=== PATIENT | male | born 1965 | race Two or more races ===

== ENCOUNTER 2023-05-28 14:13 | Emergency (ER) | payer SELFPAY ==
[2023-05-28 14:18] VITALS: BP 166/99; PULSE 71; RESP 18; TEMP 36.7; O2SAT 97; BMI 27.5
--- NOTE | 2023-05-28 14:37 | ED_ITS ---
HPI - General Adult General Chief complaint: Headache/Migraine Stated complaint: L ear pain, headache Time Seen by Provider: 05/28/23 14:14 History of Present Illness HPI narrative: Patient is a 58-year-old male who through an certified ophthalmic medical technician reports that he has had some sinus congestion primarily left maxillary sinus area and some occasional ear discomfort. He has had this on and off for 8 months. He was on antibiotics in [place] for about a week and he reports that that helped him. He denies any other health history of medical problems. He has no known drug allergies to medicines he is on no home medications. Patient denies chest pain or breathing problem. Related Data Previous Rx's Medication Instructions Recorded amoxicillin 500 mg capsule 500 mg PO TID #42 caps 05/28/23 prednisone 20 mg tablet 20 mg PO BID #10 tabs 05/28/23 Allergies Allergy/AdvReac Type Severity Reaction Status Date / Time No Known Drug Allergies Allergy Verified 05/28/23 14:18 Review of Systems Status of ROS: Reports: 6 or more systems reviewed and unremarkable except as noted in History and below PFSH PFSH Social History Smoking Status: Never smoker Do you use any of these nicotine containing products: None Second hand tobacco smoke exposure: No How often do you have a drink containing alcohol: never AUDIT-C Alcohol total score: 0 Non-prescribed substance use: denies use service: No Exam Narrative: Exam Narrative: Objective: Patient is no distress, is blood pressure is just slightly elevated 166/99, he is afebrile HEENT shows ears clear bilaterally there is some cerumen in the canals He has got left maxillary sinus tenderness right is on tender throat is clear neck is supple Const: Vital Signs, click to edit/add: Vital Signs - 24 hr 05/28/23 14:18 Temperature 98.1 F Pulse Rate [Pulse Oximeter] 71 Respiratory Rate 18 Blood Pressure [Le ft Upper Arm] 166/99 H Pulse Oximetry 97 Oxygen Delivery Me thod Room Air Course Vital Signs Vital signs: Initial Vital Signs Temperature 98.1 F 05/28/23 14:18 Temperature Source Temporal Artery Scan 05/28/23 14:18 Pulse Rate 71 05/28/23 14:18 Pulse Rhythm Regular 05/28/23 14:18 Respiratory Rate 18 05/28/23 14:18 Blood Pressure 166/99 H 05/28/23 14:18 Blood Pressure Mean 121 H 05/28/23 14:18 Blood Pressure Position Supine 05/28/23 14:18 Pulse Oximetry 97 05/28/23 14:18 Oxygen Delivery Method Room Air 05/28/23 14:18 Vital Signs Temperature 98.1 F 05/28/23 14:18 Pulse Rate 71 05/28/23 14:18 Respiratory Rate 18 05/28/23 14:18 Blood Pressure 166/99 H 05/28/23 14:18 Pulse Oximetry 97 05/28/23 14:18 Oxygen Delivery Method Room Air 05/28/23 14:18 Temperature 98.1 F 05/28/23 14:18 Pulse Rate 71 05/28/23 14:18 Respiratory Rate 18 05/28/23 14:18 Blood Pressure 166/99 H 05/28/23 14:18 Pulse Oximetry 97 05/28/23 14:18 Oxygen Delivery Method Room Air 05/28/23 14:18 Medical Decision Making MDM Narrative Medical decision making narrative: 58-year-old male with left maxillary sinusitis, question whether there is an allergic component to it as well. I think I would cover him with amoxicillin 500 t.i.d. x2 weeks, would also give him prednisone 20 mg b.i.d. x5 days. Fluids and steam recommended, he can follow up with primary care within the next 2 weeks for reassessment. Return to ED sooner problems or concerns. Discharge Plan Discharge Clinical Impression: Sinusitis Patient Disposition: Home, Self-Care Condition: Stable Additional Instructions: Antibiotics and steroids as prescribed, recommend follow-up with the primary care physician within 2 weeks for recheck. Activity Level: No Restrictions Discharge Diet: Regular Prescriptions: New amoxicillin 500 mg capsule 500 mg PO TID Qty: 42 0RF prednisone 20 mg tablet 20 mg PO BID Qty: 10 0RF Stand Alone Forms: [employer] Info Instructions
== END 2023-05-28 14:52 | disposition home or self-care (01) ==
PROVIDERS: Emergency Provider Family Medicine
DX: J32.9 Chronic sinusitis, unspecified (principal)
CPT/HCPCS: 99283; T1013

== ENCOUNTER 2024-03-19 22:33 | Emergency (ER) | payer OTHER, SELFPAY ==
[2024-03-19 23:26] VITALS: BP 172/89; PULSE 60; RESP 18; TEMP 36.6; O2SAT 99; BMI 26.6
--- NOTE | 2024-03-19 23:52 | ED_ITS ---
HPI - Headache General Time Seen by Provider: 23:52 Date Seen: 03/19/24 Chief Complaint: Headache/Migraine Stated Complaint: Headache Time Seen by Provider: 03/19/24 23:52 Source: patient, RN notes reviewed and old records reviewed Mode of arrival: ambulatory Limitations: no limitations History of Present Illness HPI Narrative: 59-year-old male who comes in today complaining of headache, nasal in your congestion. Patient said he has had a daily headache for 8 years. This is in a band around his temples, also some in the back of the neck. He took Tylenol for this earlier today. He says DKA. Today because the headache got worse this afternoon. No nausea, vomiting, weakness, dizziness, vision changes. He also complains of 3 years of nasal congestion and ears feeling plugged. This does not seem to be seasonal. He has not seen a doctor previously for his headaches, he was seen for is sinus congestion in the emergency department last year but otherwise has not had any follow-up with primary care or specialty care. Related Data Previous Rx's Medication Instructions Recorded amoxicillin 500 mg capsule 500 mg PO TID #42 caps 05/28/23 prednisone 20 mg tablet 20 mg PO BID #10 tabs 05/28/23 Allergies Allergy/AdvReac Type Severity Reaction Status Date / Time No Known Drug Allergies Allergy Verified 05/28/23 14:18 PFSH COUNTS INCLUDE 234 BEDS AT THE [facility] Social History Smoking Status: Never smoker Do you use any of these nicotine containing products: None Second hand tobacco smoke exposure: No How often do you have a drink containing alcohol: never AUDIT-C Alcohol total score: 0 Non-prescribed substance use: denies use service: No Exam Narrative: Exam Narrative: General: Well-developed and well-nourished, no acute distress Head: Atraumatic and normocephalic, diffuse tenderness from the temples posteriorly around the parietal area in a bandlike configuration. Also some occipital tenderness bilaterally. Eyes: Pupils are equal reactive, extraocular motions intact, conjunctiva clear ENT: External nose and ears are normal, posterior pharynx without erythema or exudate Neck: No midline cervical tenderness, full spontaneous range of motion the ne ck, trachea midline, no adenopathy Heart: Regular rate and rhythm no murmurs or thrills Lungs: Clear to auscultation bilaterally without wheezes or crackles Abdomen: Soft, nontender, nondistended with active bowel sounds Musculoskeletal: No tenderness, deformity, or edema Neurologic: Awake, alert, and oriented x3, no gross focal neurologic deficits, cranial nerves intact as tested Psych: Mood and affect are appropriate Skin: No rashes Const: Vital Signs, click to edit/add: Vital Signs - 24 hr 03/19/24 23:26 Temperature 97.9 F Pulse Rate [Pulse Oximeter] 60 Respiratory Rate 18 Blood Pressure [Ri ght Upper Arm] 172/89 H Pulse Oximetry 99 Oxygen Delivery Me thod Room Air Course Course ED Course: Patient presents today with chronic daily headache going on for the last 8 years as well as nasal congestion and ear fullness for the last 3 years. No focal neurologic deficits, no recent trauma. We discussed that his symptoms today are not consistent with acute emergent pathology including acute CVA, hemorrhage, mass, or intracranial infection. He will be given Toradol and Decadron in the emergency department and discharged with prescription for Flonase, also given information about establishing primary care for his chronic medical issues. Blood pressure is elevated in the emergency department, patient will need follow-up primary care to address this. Vital Signs Vital signs: Initial Vital Signs Temperature 97.9 F 03/19/24 23:26 Temperature Source Temporal Artery Scan 03/19/24 23:26 Pulse Rate 60 03/19/24 23:26 Respiratory Rate 18 03/19/24 23:26 Blood Pressure 172/89 H 03/19/24 23:26 Blood Pressure Mean 116 H 03/19/24 23:26 Blood Pressure Position Sitting 03/19/24 23:26 Pulse Oximetry 99 03/19/24 23:26 Oxygen Delivery Method Room Air 03/19/24 23:26 Vital Signs Temperature 97.9 F 03/19/24 23:26 Pulse Rate 60 03/19/24 23:26 Respiratory Rate 18 03/19/24 23:26 Blood Pressure 172/89 H 03/19/24 23:26 Pulse Oximetry 99 03/19/24 23:26 Oxygen Delivery Method Room Air 03/19/24 23:26 Temperature 97.9 F 03/19/24 23:26 Pulse Rate 60 03/19/24 23:26 Respiratory Rate 18 03/19/24 23:26 Blood Pressure 172/89 H 03/19/24 23:26 Pulse Oximetry 99 03/19/24 23:26 Oxygen Delivery Method Room Air 03/19/24 23:26 Discharge Plan Discharge Clinical Impression: Headache, Blood pressure elevated without history of HTN, Chronic nasal congestion Patient Disposition: Home, Self-Care Condition: Stable Instructions: General Headache (ED), How to Use Nasal [place] (ED) Additional Instructions: Call [phone] to make an appointment with in [facility], or [phone] to make an appointment in the [facility] Activity Level: No Restrictions Discharge Diet: Regular Prescriptions: No Action amoxicillin 500 mg capsule 500 mg PO TID Qty: 42 0RF prednisone 20 mg tablet 20 mg PO BID Qty: 10 0RF Follow Up/Referrals: Provider,Not a Local [Primary Care Provider] - Stand Alone Forms: [employer] Info Instructions
[2024-03-20] MEDS: dexAMETHasone 10 MG/ML inj IM (00:29)
[2024-03-20 00:30] VITALS: TEMP 36.6
[2024-03-20] MEDS: KETOROLAC 30 MG/ML inj IM (00:30)
== END 2024-03-20 00:34 | disposition home or self-care (01) ==
LOC: ED 03-20 00:27
PROVIDERS: Emergency Provider Family Medicine
DX: R51.9 Headache, unspecified (principal); R03.0 Elevated blood-pressure reading, without diagnosis of hypertension; R09.81 Nasal congestion
CPT/HCPCS: 96372; 99283; 99284; J1100; J1885

== ENCOUNTER 2025-08-10 16:23 | Outpatient (CLI) | payer OTHER, SELFPAY | END 2025-08-10 16:24 | disposition home or self-care (01) | LOC: NFLDREF 08-28 16:29 | DX: R07.9 Chest pain, unspecified (principal) | CPT/HCPCS: 84484 ==